=== PATIENT | female | born 1965 | race Caucasian/White ===

== ENCOUNTER 2016-05-22 23:41 | Emergency (ER) | payer BC ==
[~2016-05-22] VITALS: Ht 167.6 cm; Wt 61.2 kg
[2016-05-22 23:50] VITALS: BP 176/84
[2016-05-23 00:10] LABS: Urine Bilirubin Negative (Negative); Urine Blood 2+ /uL (Negative); Urine Color Yellow (Yellow); Urine Glucose Normal (Normal); Urine Ketone Negative (Negative); Urine Nitrite Negative (Negative); Urine RBC 21 /hpf (0 - 4); Urine Squamous Epithelial Cell FEW /hpf (<5); Urine Urobilinogen Normal (Negative); Urine WBC Clumps PRESENT /hpf (None Seen)
== END 2016-05-23 00:20 | disposition home or self-care (01) ==
LOC: ER 23:42
DX: N39.0 Urinary tract infection, site not specified (principal)
CPT/HCPCS: 81001

== ENCOUNTER → 2018-05-13 | Outpatient (CLI) | payer BC ==
[2018-05-13 11:44] LABS: Chloride 105 mmol/L (98-107); Potassium 4.5 mmol/L (3.5-5.1); Sodium 138 mmol/L (136-145)
[2018-05-13 12:02] LABS: Alanine Aminotransferase 30 U/L (13-56); Albumin 3.8 g/dL (3.4-5.0); Alkaline Phosphatase 88 U/L (45-117); Anion Gap 7 (5-15); Aspartate Aminotransferase 19 U/L (15-37); BUN/Creatinine Ratio 18.2; Bilirubin, Total 1.1 mg/dL (0.2-1.0); Blood Urea Nitrogen 14 mg/dL (7-18); Calcium 8.6 mg/dL (8.5-10.1); Carbon Dioxide 26 mmol/L (21-32); Cholesterol 164 mg/dL (< 200); GFR African American > 60 mL/min; GFR Non-African American > 60 mL/min; Glucose 95 mg/dL (74-106); HDL Cholesterol 57 mg/dL (40-59); LDL Cholesterol 97 mg/dL (< 100); Total Protein 7.4 g/dL (6.4-8.2); Triglycerides 75 mg/dL (< 150)
== END | disposition home or self-care (01) ==
LOC: LAB 09:23
PROVIDERS: ATTEND Nurse Practitioner
DX: E78.5 Hyperlipidemia, unspecified (principal)
CPT/HCPCS: 36415; 80053; 80061; 82306; 83036

== ENCOUNTER → 2018-08-26 | Outpatient (CLI) | payer BC ==
[2018-08-26 11:06] LABS: Basophils # (auto) 0.1 uL; Basophils % (auto) 1.4 % (0.0-2.0); Eosinophils # (auto) 0.3 uL; Eosinophils % (auto) 6.3 % (0.0-7.0); Hematocrit 43.9 % (36.0-46.0); Hemoglobin 14.9 g/dL (12.2-16.2); Lymphocytes # (auto) 1.5 uL; Lymphocytes % (auto) 29.3 % (10.0-50.0); Mean Corpuscular Hemoglobin 30.7 pg (28.0-32.0); Mean Corpuscular Hgb Conc. 33.8 g/dL (32.0-36.0); Mean Corpuscular Volume 90.9 fL (80.0-100.0); Monocytes # (auto) 0.4 uL; Neutrophils # (auto) 2.9 uL; Nucleated Red Blood Cells % 0.1 %; Platelet Count (auto) 301 10^3/uL (140-450); Red Blood Cells 4.83 10^6/uL (4.0-5.20); Red Cell Distribution Width 14.5 % (11.8-14.3); White Blood Cell 5.1 10^3/uL (4.4-10.8)
[2018-08-26 11:22] LABS: Urine Bacteria FEW /hpf (None Seen); Urine Blood Negative /uL (Negative); Urine Specific Gravity 1.019 (1.001-1.035); Urine WBC 17 /hpf (0 - 5)
[2018-08-26 12:26] LABS: Potassium 4.3 mmol/L (3.5-5.1)
[2018-08-26 12:39] LABS: Albumin 4.1 g/dL (3.4-5.0); BUN/Creatinine Ratio 19.2; Bilirubin, Total 0.9 mg/dL (0.2-1.0); Total Protein 7.8 g/dL (6.4-8.2)
[2018-08-26 12:56] LABS: Folate (Folic Acid) 8.34 ng/mL (5.38-24)
== END | disposition home or self-care (01) ==
LOC: LAB 10:26
PROVIDERS: ATTEND Nurse Practitioner
DX: E78.5 Hyperlipidemia, unspecified (principal)
CPT/HCPCS: 36415; 80053; 80061; 81001; 82306; 82607; 82746; 83036; 84443; 85025

== ENCOUNTER → 2019-04-28 | Outpatient (CLI) | payer BC ==
[2019-04-28 09:06] LABS: Calcium 9.1 mg/dL (8.5-10.1); Potassium 4.6 mmol/L (3.5-5.1)
== END | disposition home or self-care (01) ==
LOC: LAB 08:15
PROVIDERS: ATTEND Internal Medicine
DX: I10 Essential (primary) hypertension (principal)
CPT/HCPCS: 36415; 80048